=== PATIENT | female | born 1995 | race Caucasian/White ===

== ENCOUNTER 2023-05-20 18:54 | Outpatient (RCR) | payer OTHER, SELFPAY | END 2023-05-20 23:59 | disposition home or self-care (01) | LOC: RPT 18:54 | PROVIDERS: ATTENDING PHYSICIAN Obstetrics & Gynecology; PRIMARYCARE PHYSICIAN Nurse Practitioner | DX: R10.2 Pelvic and perineal pain (principal); N94.10 Unspecified dyspareunia; N39.46 Mixed incontinence; M62.89 Other specified disorders of muscle; Z73.6 Limitation of activities due to disability | CPT/HCPCS: 97110; 97112; 97140; 97530 ==

== ENCOUNTER 2023-06-11 19:13 | Outpatient (RCR) | payer OTHER, SELFPAY | END 2023-06-11 23:59 | disposition home or self-care (01) | LOC: RPT 19:13 | PROVIDERS: ATTENDING PHYSICIAN Obstetrics & Gynecology; PRIMARYCARE PHYSICIAN Nurse Practitioner | DX: R10.2 Pelvic and perineal pain (principal); N94.10 Unspecified dyspareunia; N39.46 Mixed incontinence; M62.89 Other specified disorders of muscle; Z73.6 Limitation of activities due to disability | CPT/HCPCS: 97112; 97140; 97530 ==

== ENCOUNTER → 2023-06-23 17:20 | Outpatient (REF) | payer OTHER, SELFPAY | LOC: PNTC 17:20 | PROVIDERS: ATTENDING PHYSICIAN Obstetrics & Gynecology | DX: O98.519 Other viral diseases complicating pregnancy, unspecified trimester (principal); U07.1 COVID-19 | CPT/HCPCS: 76816 ==

== ENCOUNTER 2023-07-15 08:55 | Outpatient (RCR) | payer OTHER, SELFPAY | END 2023-07-15 23:59 | disposition home or self-care (01) | LOC: RPT 08:55 | PROVIDERS: ATTENDING PHYSICIAN Obstetrics & Gynecology; PRIMARYCARE PHYSICIAN Nurse Practitioner | DX: R10.2 Pelvic and perineal pain (principal); N94.10 Unspecified dyspareunia; N39.46 Mixed incontinence; M62.89 Other specified disorders of muscle; Z73.6 Limitation of activities due to disability | CPT/HCPCS: 97140; 97530 ==

== ENCOUNTER 2023-07-29 07:30 | Inpatient (IN) | payer OTHER, SELFPAY ==
[2023-07-29 07:49] VITALS: BMI 31.1
[2023-07-29 07:51] VITALS: BP 132/87
[2023-07-29 08:09] LABS: Hematocrit 32.7 % (37.0-47.0); Hemoglobin 11.2 g/dL (12.0-16.0); Mean Corp Hgb Conc. 34.3 g/dL (33.0-37.0); Mean Corpuscular Hgb 31.3 pg (27.0-31.0); Mean Corpuscular Volume 91.3 fL (81.0-99.0); Mean Platelet Volume 11.4 fL (7.4-10.4); Platelet Count 206 10^3/uL (130-400); Red Blood Cell Count 3.58 10^6/uL (4.20-5.40); Red Cell Dist. Width 13.3 % (11.5-14.5); White Blood Cell Count 8.1 10^3/uL (4.8-10.8)
[2023-07-29] MEDS: ANCEF 10 IV (12:36)
[2023-07-29] MEDS: BICITRA 30 ML PO (12:36)
[2023-07-29] MEDS: TYLENOL 1000 MG PO (12:36)
[2023-07-29] MEDS: MORPHINE SULFATE 4 MG IV (15:14)
[2023-07-29] MEDS: LR 1000 IV (16:05)
[2023-07-29] MEDS: TORADOL 15 MG IV (19:49)
[2023-07-29] MEDS: BENADRYL 25 MG IV (19:50)
[2023-07-30] MEDS: TORADOL 15 MG IV ×3 (02:02→13:35)
[2023-07-30] MEDS: BENADRYL 25 MG PO (03:08)
[2023-07-30 05:12] LABS: Hematocrit 25.2 % (37.0-47.0); Hemoglobin 8.5 g/dL (12.0-16.0); Mean Corp Hgb Conc. 33.7 g/dL (33.0-37.0); Mean Platelet Volume 11.6 fL (7.4-10.4); Platelet Count 192 10^3/uL (130-400); Red Blood Cell Count 2.74 10^6/uL (4.20-5.40); Red Cell Dist. Width 13.2 % (11.5-14.5); White Blood Cell Count 12.7 10^3/uL (4.8-10.8)
--- NOTE | 2023-07-30 07:18 | W.PN.ANS.POP ---
Anesthesia Post Operative
- Anesthesia Post Op Note
Vital Signs Stable-See Nursing Note: Yes
Airway Patent: Yes
Adequate Pain Control: Yes
Change in Mental Status: No
Current Postoperative Nausea & Vomiting: No
Anesthesia Complications: No
General Anesthetic Recall: No
Unplanned Admission: No
Post Op Hydration Adequate: Yes
[2023-07-30] MEDS: MORPHINE SULFATE 4 MG IV (08:03)
[2023-07-30] MEDS: MOTRIN 600 MG PO (19:30)
[2023-07-30] MEDS: TYLENOL 650 MG PO (21:20)
[2023-07-30] MEDS: ULTRAM 50 MG PO (23:36)
[2023-07-31] MEDS: MOTRIN 600 MG PO ×4 (04:22→23:31)
[2023-07-31] MEDS: TYLENOL 650 MG PO ×4 (04:22→23:30)
[2023-07-31] MEDS: FEOSOL 325 MG PO (08:07)
[2023-07-31] MEDS: SENOKOT-S 1 TABLET PO (08:13)
[2023-08-01] MEDS: MOTRIN 600 MG PO (06:31)
[2023-08-01] MEDS: TYLENOL 650 MG PO (06:33)
[2023-08-01] MEDS: FEOSOL 325 MG PO (08:09)
[2023-08-01] MEDS: SENOKOT-S 1 TABLET PO (08:09)
--- NOTE | 2023-08-01 12:29 | W.DS.TRANS ---
DC Summary - Inspector Assembly
-
Discharge Instructions:
Discharge Diagnosis/Procedures rcs, pph
Instructions:
Stand-Alone Forms:
Changes to Home Medications: No
Discharge Medications:
DC Medications w/original date entered in [facility]
ibuprofen 600 mg tablet 600 mg PO Q6HPRN PRN cramps #90 tabs 08/01/23
Home Medication Changes
Pending Results: No
[2023-08-01 17:18] LABS: Syphilis/T. pallidum Ab Reflex Negative (Negative)
== END 2023-08-01 13:14 | disposition home or self-care (01) | DRG 787 ==
LOC: LDRP 07:30
PROVIDERS: ADMITTING PHYSICIAN Obstetrics & Gynecology
PROC: 10D00Z1 Extraction of Products of Conception, Low, Open Approach (ICD-10-PCS; 2023-07-29)
PROC: 0UQC7ZZ Repair Cervix, Via Natural or Artificial Opening (ICD-10-PCS; 2023-07-29)
DX: O34.211 Maternal care for low transverse scar from previous cesarean delivery (principal); O71.3 Obstetric laceration of cervix; Z37.0 Single live birth; Z3A.39 39 weeks gestation of pregnancy
CPT/HCPCS: 36415; 85027; 86780; 86850; 86900; 86901

== ENCOUNTER → 2023-09-11 14:15 | Outpatient (REF) | payer OTHER, SELFPAY | LOC: RAD 14:15 | PROVIDERS: ATTENDING PHYSICIAN Orthopaedic Surgery; FAMILY PHYSICIAN Nurse Practitioner | DX: M79.671 Pain in right foot (principal) | CPT/HCPCS: 73700 ==

== ENCOUNTER 2023-09-16 15:21 | Outpatient (RCR) | payer OTHER, SELFPAY | END 2023-09-16 23:59 | disposition home or self-care (01) | LOC: RPT 15:21 | PROVIDERS: ATTENDING PHYSICIAN Obstetrics & Gynecology; PRIMARYCARE PHYSICIAN Nurse Practitioner | DX: R10.2 Pelvic and perineal pain (principal); N94.10 Unspecified dyspareunia; N39.46 Mixed incontinence; M62.89 Other specified disorders of muscle; Z73.6 Limitation of activities due to disability; Z98.890 Other specified postprocedural states | CPT/HCPCS: 97140; 97164; 97530 ==

== ENCOUNTER → 2023-09-25 10:26 | Outpatient (REF) | payer OTHER, SELFPAY | LOC: PAVMRI 10:26 | PROVIDERS: ATTENDING PHYSICIAN Nurse Practitioner | DX: Z86.79 Personal history of other diseases of the circulatory system (principal); R42 Dizziness and giddiness; Z15.89 Genetic susceptibility to other disease | CPT/HCPCS: 70553; A9575 ==

== ENCOUNTER 2023-10-08 17:24 | Outpatient (RCR) | payer OTHER, SELFPAY | END 2023-10-08 23:59 | disposition home or self-care (01) | LOC: RPT 17:24 | PROVIDERS: ATTENDING PHYSICIAN Obstetrics & Gynecology; PRIMARYCARE PHYSICIAN Nurse Practitioner | DX: R10.2 Pelvic and perineal pain (principal); N94.10 Unspecified dyspareunia; N39.46 Mixed incontinence; M62.89 Other specified disorders of muscle; Z73.6 Limitation of activities due to disability | CPT/HCPCS: 97014; 97112; 97140; 97530 ==

== ENCOUNTER 2023-11-15 22:50 | Emergency (ER) | payer OTHER, SELFPAY ==
[2023-11-15 22:54] VITALS: BP 151/99
--- NOTE | 2023-11-15 23:10 | ED.GENMED ---
History of Present Illness
General
Chief Complaint: Blood Pressure Problem
Source: patient
Time Seen by Provider: 11/15/23 23:03
Nursing documentation reviewed up to this point in time: agreed with
History of Present Illness
History of Present Illness:
This a pleasant 27-year-old female who is by 4 months. She reports being anemic and hypertensive. 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 Patient
states that for the last few days she is having high blood pressure. She also reports having headache and diarrhea. Patient denies fever but did have cold chills. She has been having intermittent 'spotty vision'.
Patient has had 2 C-sections. Her first child was born 17 months prior
Vital signs are stable. Patient not hypoxic
Nursing note reviewed. I agree with nursing documentation up to this point in time.
Home Meds and allergies reviewed.
NUMBER AND COMPLEXITY OF PROBLEMS ADDRESSED AT THE ENCOUNTER
� Chronic conditions affecting care:
� Acute Exacerbation and/or Progression of Chronic Illness:
� Differential Diagnosis includes:
AMOUNT AND/OR COMPLEXITY OF DATA TO BE REVIEWED AND ANALYZED
I performed an independent evaluation of the following and my interpretation is:
EKG: Normal sinus rhythm rate of 96 with normal intervals, normal axis. No evidence of acute ischemia present. When compared with previous EKG dated March 05, 2023, similar morphology noted.
CT:
X-rays:
Ultrasound:
Laboratory Studies: Potassium is 2.7. Will give oral supplementation. MCV is 83. H&H is within normal limits.
Other:
Review of other/old records: Discharge summary from previous 08/02/2023
Clinical information was obtained by an independent historian:
Prescriptions/Medications Considered but not given:
Further testing considered but not performed:
RISK OF COMPLICATIONS AND/OR MORBIDITY OR MORTALITY OF PATIENT MANAGEMENT
Social determinants of health affecting care: Good Social Support
Discussion with other providers:
Escalation of care including admission/observation vs risk of discharge considered:
CRITICAL CARE NOTE:
Total Time (exclusive of procedures):
Update:
Past History
Past History
ED Past Medical History: Arrthythmia (SVT) and Other (Lyme disease, presumed endometriosis, Migraine, SVT, Stomach ulcers, )
ED Past Surgical History: Cardiac (cardiac ablation), and Tonsilectomy
Social History
Tobacco: Non-smoker
Alcohol: None
Personal:
Living: with family
Employment: Student
Review of Systems
Review of Systems
Allergies reviewed?: Yes
All Other Systems: ROS reviewed and negative except as documented in HPI and ROS
Constitutional: Reports chills
EENT: Reports no symptoms
Respiratory: Reports no symptoms
Cardiac: Reports no symptoms
ABD/GI: Reports diarrhea
: Reports no symptoms
Musculoskeletal: Reports no symptoms
Skin: Reports no symptoms
Neurological: Reports headache
Endocrine: Reports no symptoms
Hematologic/Lymphatic: Reports no symptoms
Psychiatric: Reports anxiety
Phy Exam
General Physical Exam
General Presentation: well appearing and no apparent distress
General Skin: warm and dry
General Habitus: normal
General Mental: alert
General Hydration: appears well hydrated
ENT Exam
ENT Exam: EOMI, pharynx normal, neck supple and normocephalic
Eye Exam
Eye Exam: PERRL, cornea clear and conjunctiva normal
Cardiovascular Exam
Cardiovascular Exam: regular rate/rhythm, no edema, no murmur and normal peripheral pulses
Pulmonary Exam
Pulmonary Exam: lungs clear, no respiratory distress, no rales, no crackles, no rhonchi, no stridor, no wheezing and no cough
Gastrointestinal Exam
Gastrointestinal Exam: normal bowel sounds, non tender, soft, no organomegaly, no pulsatile mass and non distended
Neurological Exam
Neurological Exam: alert, oriented x3, no motor deficits and speech normal
Musculoskeletal Exam
Musculoskeletal Exam: full ROM and no edema
Skin Exam
Skin Exam: warm/dry, no rash, no petechia and pallor
Psychiatric Exam
Psychiatric Exam: normal mood/affect
Course
Orders/Labs/Results
Orders:
Orders
11/15/23 23:17
Complete Blood Count/With Diff Urgent
Comprehensive Metabolic Panel Urgent
Iron Urgent
Lipase Urgent
Comment: ADD ON
Prothrombin Time Urgent
TIBC [Total Iron Binding] Urgent
Uric Acid Urgent
Comment: ADD ON
11/15/23 23:19
Urinalysis Reflex To Culture Urgent
Date Specimen was Collected: 11/15/23
Time Specimen was Collected: 23:18
Urine Microscopic Reflex Cult Urgent
Urine Culture Urgent
PUJA Source: U
Specimen Description:
Date Specimen was Collected: 11/15/23
Time Specimen was Collected: 23:18
11/15/23 23:29
Electrocardiogram (*1) Urgent
Reason for Study: Vertigo / Dizzy
EKG- Treatment ONCE
11/15/23 23:48
Add On- LAB Urgent
Tests Added?: uric acid
0.9% Sodium Chloride 1000 ml [Nss] 1,000 ml IV BOLUS
11/15/23 23:53
Potassium Chloride 10% Elixir [KCl Elixir] 40 meq PO NOW STA
11/16/23 01:20
Add On- LAB Urgent
Tests Added?: lipase
11/16/23 02:33
Basic Metabolic Panel Urgent
11/16/23 03:38
Fosfomycin [Monurol] 3 gm PO ONCE ONE
Abnormal Lab Results
11/15/23 11/15/23 11/16/23
23:17 23:19 02:33
Absolute Monos (auto) 0.7 H 10^3/uL
(0.1-0.6)
Monocytes % 14.0 H %
(1.7-9.3)
Potassium 2.7 L* mmol/L 3.4 L D mmol/L
(3.5-5.1) (3.5-5.1)
Chloride 110 H mmol/L
(98-107)
Creatinine 0.5 L mg/dL
(0.6-1.0)
ALT 51 H U/L
(0-35)
Total Protein 8.4 H g/dl
(6.3-8.2)
Albumin 5.3 H g/dl
(3.5-5.0)
Urine Ketones Trace A
(Negative)
Ur Occult Blood Reflex 3+ A
(Negative)
Leukocyte Esterase Rfl Trace A
(Negative)
Urine Bacteria (Reflex) Moderate A
(Negative)
11/15/23 23:17
11/16/23 02:33
Vital Signs
Initial and Last Documented VS:
Initial Vital Signs
Temp Pulse Resp BP Pulse Ox
98.9 F 79 20 151/99 100
11/15/23 22:54 11/15/23 22:54 11/15/23 22:54 11/15/23 22:54 11/15/23 22:54
Last Documented Vital Signs
Temp Pulse Resp BP Pulse Ox
98.9 F 86 15 107/71 97
11/15/23 22:54 11/16/23 03:30 11/16/23 03:30 11/16/23 03:00 11/16/23 03:30
*Critical Care Note
Total Time (30-74mins, 75-104mins- exclusive of procedures): Not Applicable
Update Note
Update Note:
Spoke with Dr. Pascual did not feel that this is preeclampsia. She states that it typically occurs within the first 6 weeks after delivery. She does recommend follow-up with family doctor for blood pressure. She agrees with the rest of the plan.
ED Attending Note
-
Portions of this chart may have been created with voice recognition software.� Occasional wrong word or��sound alike� substitutions may have occurred due to the inherent limitations of voice recognition software.
Discharge Plan
Departure
Patient Disposition: Home (Routine Discharge)
Date of Disposition: 11/16/23
Time of Disposition: 03:34
Patient with high blood pressure during this ER visit?: No
Condition: Good
Discharge Problem:
Acute hypokalemia, Hypertension, vaginal bleeding
Instructions: Hypokalemia, High Blood Pressure (DC)
Prescriptions:
No Action
Nuretin
1 tab PO DAILY PRN (Reason: headache)
1 tab PO DAILY
iron
1 tab PO BID
Rx Instructions:
unsure of dose
Referrals:
Ceci French CRNP [Family Provider] -
Activity Restrictions/Additional Instructions:
It was a pleasure meeting you and taking part in your care. We hope for your continued healing and wellness.
Please read discharge instructions in their entirety. However, they are for general education and may not describe your exact diagnosis at discharge. Information on your ER visit and medical conditions were discussed with you along with appropriate
follow up information...
If indicated, please take your medications as instructed and indicated on discharge paperwork.
Please schedule a follow up appointment as directed. Call to schedule an appointment
Please return to the emergency department with ANY change in, persisting, or worsening of symptoms. If any of your symptoms do not improve, or persist, or become more severe within 6-12 hours, please return to the emergency department for further
care.
Please return to the emergency department if you develop a headache, neck pain/stiffness, fever greater than 100.4F, chest pain, shortness of breath, persistent nausea, vomiting, slurred speech, difficulty walking, numbness/tingling, weakness, signs
of infection or any other symptoms that are worrisome to you.
If you have any questions or concerns please do not hesitate to call the Hospital at or E-mail me directly at [email or web address]
Interventions
Interventions:
*Risk Screen - Suicide Last Done: 11/15/23 22:54
*General Assessment Last Done: 11/15/23 22:54
*Neglect/Abuse Screening Last Done: 11/15/23 22:54
ED- Fall Risk Assessment Last Done: 11/15/23 22:54
*ED COVID-19 Vaccine History Last Done: 11/15/23 22:54
*Nursing Disposition Last Done: 11/16/23 03:45
QA-Zlkizx-Rgbqwvphoh Assessment Last Done: 11/15/23 23:10
ED- Cardiac Assessment Last Done: 11/15/23 23:10
ED- Neurological Assessment Last Done: 11/15/23 23:10
ED- Pulmonary Assessment Last Done: 11/15/23 23:10
Discharge Date and Time
Discharge Date/Time: 11/16/23 03:46
Print Language: BOLIVIAN
[2023-11-15 23:27] LABS: % Basophils 0.2 % (0-2); % Immature Granulocytes 0.2 % (0-0.5); % Lymphocytes 38.2 % (20.5-51.1); % Neutrophils 46.4 % (42.2-75.2); Absolute Eosinophils 0.1 10^3/uL (0-0.7); Absolute Monocytes 0.7 10^3/uL (0.1-0.6); Absolute Neutrophils 2.4 10^3/uL (1.4-6.5); Hematocrit 37.9 % (37.0-47.0); Hemoglobin 13.6 g/dL (12.0-16.0); Mean Corp Hgb Conc. 35.9 g/dL (33.0-37.0); Mean Corpuscular Volume 83.5 fL (81.0-99.0); Mean Platelet Volume 10.2 fL (7.4-10.4); Nucleated Red Blood Cells % 0 %; Platelet Count 224 10^3/uL (130-400); Red Blood Cell Count 4.54 10^6/uL (4.20-5.40); White Blood Cell Count 5.2 10^3/uL (4.8-10.8)
[2023-11-15 23:28] LABS: Urine Albumin Trace (Neg - Trace); Urine Bilirubin Negative (Negative); Urine Character Slightly Cloudy (Clear); Urine Color Yellow; Urine Glucose Negative (Negative); Urine Ketone Trace (Negative); Urine Leukocyte Trace (Negative); Urine Nitrite Negative (Negative); Urine Occult Blood 3+ (Negative); Urine Specific Gravity 1.025 (<1.030); Urine Urobilinogen Negative (Neg - 1+)
[2023-11-15 23:33] VITALS: BP 115/80
[2023-11-15 23:38] LABS: INR 0.98; PT 12.8 Sec (11.4-14.6)
[2023-11-15 23:49] LABS: Urine Squamous Cell >30 /LPF (Few)
[2023-11-15 23:50] LABS: ALT (SGPT) 51 U/L (0-35); AST (SGOT) 36 U/L (14-36); Albumin 5.3 g/dl (3.5-5.0); Alkaline Phosphatase 86 U/L (38-126); Blood Urea Nitrogen 9 mg/dl (7-17); Calcium 9.7 mg/dl (8.4-10.2); Carbon Dioxide 25 mmol/L (22-30); Chloride 104 mmol/L (98-107); Glucose 98 mg/dl (70-99); Iron 94 ug/dl (37-170); Potassium 2.7 mmol/L (3.5-5.1); Sodium 145 mmol/L (135-145); Total Bilirubin 0.7 mg/dl (0.2-1.3); Total Protein 8.4 g/dl (6.3-8.2); eGFR > 60.00
[2023-11-15 23:50] LABS: Urine Bacteria Moderate (Negative); Urine Red Blood Cell 0-2 /HPF (0-2)
[2023-11-15] MEDS: NSS 1000 IV (23:55)
[2023-11-15] MEDS: KCL ELIXIR 40 MEQ PO (23:59)
[2023-11-16] VITALS: BP 129/99
[2023-11-16 00:05] LABS: Percent Saturation 21 % (20-50); Total Iron Binding Capacity 428 ug/dl (265-497); Uric Acid 6.2 mg/dl (2.5-6.2)
[2023-11-16 01:00] VITALS: BP 113/86
[2023-11-16 01:56] LABS: Lipase 197 U/L (23-300)
[2023-11-16 02:00] VITALS: BP 117/78
[2023-11-16 03:00] VITALS: BP 107/71
[2023-11-16 03:15] LABS: Blood Urea Nitrogen 7 mg/dl (7-17); Calcium 8.5 mg/dl (8.4-10.2); Carbon Dioxide 26 mmol/L (22-30); Chloride 110 mmol/L (98-107); Glucose 89 mg/dl (70-99); Potassium 3.4 mmol/L (3.5-5.1); Sodium 143 mmol/L (135-145); eGFR > 60.00
[2023-11-16] MEDS: MONUROL 3 GM PO (03:42)
== END 2023-11-16 03:46 | disposition home or self-care (01) ==
LOC: EMR 22:50
PROVIDERS: EMERGENCY PHYSICIAN Student in an Organized Health Care Education/Training Program; FAMILY PHYSICIAN Nurse Practitioner
DX: O90.89 Other complications of the puerperium, not elsewhere classified (principal); O16.5 Unspecified maternal hypertension, complicating the puerperium; N93.9 Abnormal uterine and vaginal bleeding, unspecified; E87.6 Hypokalemia; R51.9 Headache, unspecified; R42 Dizziness and giddiness; R19.7 Diarrhea, unspecified; R68.83 Chills (without fever); H53.8 Other visual disturbances; D64.9 Anemia, unspecified; Z88.1 Allergy status to other antibiotic agents; Z88.5 Allergy status to narcotic agent; Z91.048 Other nonmedicinal substance allergy status; Z87.11 Personal history of peptic ulcer disease
CPT/HCPCS: 99284; 80048; 80053; 81003; 81015; 83540; 83550; 83690; 84550; 85025; 85610; 87086; 93005

== ENCOUNTER 2023-11-19 07:39 | Emergency (ER) | payer OTHER, SELFPAY ==
[2023-11-19] VITALS (8 sets, daily range): BP systolic 112–136; BP diastolic 78–84; BMI 26.6
--- NOTE | 2023-11-19 07:54 | ED.GENMED ---
History of Present Illness
General
Chief Complaint: Abdominal Symptoms
Source: patient
Exam Limitations: none
Time Seen by Provider: 11/19/23 07:47
History of Present Illness
History of Present Illness:
27-year-old female 4 months presents with persistent diarrhea. She was seen here several days ago with diarrhea and noted to have potassium. Her potassium was replenished. She was also noted to have high blood pressure. This was felt
not to be related to preeclampsia given the length of time that has passed since she gave . She notes that her abdominal pain is now worsened. The pain is in the mid and right abdomen that radiates to the back. No associated urinary
symptoms. She vomited once this morning. She denies any blood in the diarrhea. She notes multiple episodes of loose watery stool a day
Past History
Past History
ED Past Medical History: Arrthythmia (SVT) and Other (Lyme disease, presumed endometriosis, Migraine, SVT, Stomach ulcers, )
ED Past Surgical History: Cardiac (cardiac ablation), and Tonsilectomy
Social History
Tobacco: Non-smoker
Alcohol: None
Personal:
Living: with family
Employment: Student
Phy Exam
Physical Exam
Physical Exam:
General: Well-appearing female no acute respiratory distress
HEENT: Normocephalic atraumatic
Heart: Regular rate and rhythm no murmurs
Lungs: Clear no wheeze
Abdomen is soft tender to the epigastric and right mid abdomen. No guarding rebound normal bowel sounds nondistended no significant costovertebral angle tenderness
Extremities: No cyanosis
Course
Orders/Labs/Results
Orders:
Orders
11/19/23 07:53
CT Abd/pel W Iv And Oral Contr Urgent
Comment:
Reason For Exam: mid and right abdominal pain, diarrhea
Iohexol [Omnipaque] See Protocol PO NOW STA
Test Result ONCE
11/19/23 07:54
0.9% Sodium Chloride 1000 ml [Nss] 1,000 ml IV BOLUS
11/19/23 08:18
Complete Blood Count/With Diff Urgent
Comprehensive Metabolic Panel Urgent
HCG, Serum Qualitative Screen Urgent
Lipase Urgent
Urinalysis Reflex To Culture Urgent
Date Specimen was Collected: 11/19/23
Time Specimen was Collected: 08:07
Urine Microscopic Reflex Cult Urgent
11/19/23 11:10
STOOL [C difficile Antigen & Toxins] Urgent
PUJA Source: Feces/Stool
Specimen Description:
Stool Culture Urgent
PUJA Source: Feces/Stool
Specimen Description:
Abnormal Lab Results
11/19/23
08:18
RBC 4.11 L 10^6/uL
(4.20-5.40)
Hct 34.9 L %
(37.0-47.0)
MPV 10.8 H fL
(7.4-10.4)
Potassium 3.1 L mmol/L
(3.5-5.1)
BUN 3 L mg/dl
(7-17)
Creatinine 0.5 L mg/dL
(0.6-1.0)
Urine Ketones 1+ A
(Negative)
Urine Bilirubin 1+ A
(Negative)
Urine Urobilinogen 2+ A
(Neg - 1+)
Leukocyte Esterase Rfl Trace A
(Negative)
11/19/23 08:18
11/19/23 08:18
Vital Signs
Initial and Last Documented VS:
Initial Vital Signs
Temp Pulse Resp BP Pulse Ox
98.2 F 92 16 124/78 98
11/19/23 07:41 11/19/23 07:41 11/19/23 07:41 11/19/23 07:41 11/19/23 07:41
Last Documented Vital Signs
Temp Pulse Resp BP Pulse Ox
98.2 F 92 16 115/79 99
11/19/23 07:41 11/19/23 07:41 11/19/23 07:41 11/19/23 13:00 11/19/23 14:15
MDM/Problems Addressed
Differential Diagnosis Includes:
Fatigue, diarrhea, recent low potassium. She notes now increased abdominal pain. Consider viral illness versus colitis will recheck again for hypokalemia. Fluids ordered labs pending. CT with IV and oral contrast pending secondary to tenderness.
*Critical Care Note
Total Time (30-74mins, 75-104mins- exclusive of procedures): Not Applicable
Update Note
Update Note:
Patient reevaluated nontoxic CT scan reviewed and negative. Potassium improved from last visit. No obvious appendicitis or enteritis on CT scan. Patient unable to provide stool sample here. Stable for discharge.
ED Attending Note
-
Portions of this chart may have been created with voice recognition software.� Occasional wrong word or��sound alike� substitutions may have occurred due to the inherent limitations of voice recognition software.
Discharge Plan
Departure
Patient Disposition: Home (Routine Discharge)
Date of Disposition: 11/19/23
Time of Disposition: 14:37
Patient with high blood pressure during this ER visit?: No
Discharge Problem:
Abdominal pain
Instructions: Abdominal Pain
Prescriptions:
No Action
Nuretin
1 tab PO DAILY PRN (Reason: headache)
1 tab PO DAILY
iron
1 tab PO BID
Rx Instructions:
unsure of dose
Referrals:
Ceci French CRNP [Family Provider] -
Activity Restrictions/Additional Instructions:
Please return here for worsening symptoms otherwise follow-up with your family doctor. Consider Imodium if needed for diarrhea.
Interventions
Interventions:
*Risk Screen - Suicide Last Done: 11/19/23 08:24
*General Assessment Last Done: 11/19/23 08:24
*Neglect/Abuse Screening Last Done: 11/19/23 08:24
ED- Fall Risk Assessment Last Done: 11/19/23 08:52
*ED COVID-19 Vaccine History Last Done: 11/19/23 07:41
CW-Wiguoo-Tjirgsloto Assessment Last Done: 11/19/23 08:50
Discharge Date and Time
Print Language: ALGERIAN
[2023-11-19] MEDS: OMNIPAQUE 50 ML PO (08:15)
[2023-11-19] MEDS: NSS 1000 IV (08:16)
[2023-11-19 08:31] LABS: % Basophils 0.2 % (0-2); % Eosinophils 0.4 % (0-6); % Immature Granulocytes 0.2 % (0-0.5); % Lymphocytes 22.4 % (20.5-51.1); % Monocytes 8.2 % (1.7-9.3); % Neutrophils 68.6 % (42.2-75.2); Absolute Lymphocytes 1.2 10^3/uL (1.2-3.4); Absolute Monocytes 0.4 10^3/uL (0.1-0.6); Absolute Neutrophils 3.5 10^3/uL (1.4-6.5); Hematocrit 34.9 % (37.0-47.0); Hemoglobin 12.6 g/dL (12.0-16.0); Mean Corp Hgb Conc. 36.1 g/dL (33.0-37.0); Mean Corpuscular Hgb 30.7 pg (27.0-31.0); Mean Corpuscular Volume 84.9 fL (81.0-99.0); Mean Platelet Volume 10.8 fL (7.4-10.4); Nucleated Red Blood Cells % 0 %; Platelet Count 240 10^3/uL (130-400); Red Blood Cell Count 4.11 10^6/uL (4.20-5.40); Urine Albumin Trace (Neg - Trace); Urine Bilirubin 1+ (Negative); Urine Character Very Cloudy (Clear); Urine Color Yellow; Urine Glucose Negative (Negative); Urine Ketone 1+ (Negative); Urine Leukocyte Trace (Negative); Urine Nitrite Negative (Negative); Urine Occult Blood Negative (Negative); Urine Specific Gravity 1.025 (<1.030); Urine Urobilinogen 2+ (Neg - 1+); White Blood Cell Count 5.1 10^3/uL (4.8-10.8)
[2023-11-19 08:43] LABS: HCG, Serum Qualitative Screen Negative
[2023-11-19 08:44] LABS: ALT (SGPT) 28 U/L (0-35); AST (SGOT) 22 U/L (14-36); Albumin 4.4 g/dl (3.5-5.0); Alkaline Phosphatase 68 U/L (38-126); Blood Urea Nitrogen 3 mg/dl (7-17); Calcium 8.7 mg/dl (8.4-10.2); Carbon Dioxide 30 mmol/L (22-30); Chloride 104 mmol/L (98-107); Estimated Creatinine Clearance > 125 ml/min; Glucose 89 mg/dl (70-99); Potassium 3.1 mmol/L (3.5-5.1); Sodium 142 mmol/L (135-145); Total Bilirubin 0.5 mg/dl (0.2-1.3); Total Protein 6.9 g/dl (6.3-8.2); eGFR > 60.00
[2023-11-19 08:56] LABS: Urine Amorphous Seen; Urine Squamous Cell >30 /LPF (Few)
[2023-11-19 09:01] LABS: Urine Red Blood Cell None Seen /HPF (0-2)
[2023-11-19 10:05] LABS: Lipase 138 U/L (23-300)
== END 2023-11-19 15:08 | disposition home or self-care (01) ==
LOC: EMR 07:39
PROVIDERS: Physician Assistant; EMERGENCY PHYSICIAN Emergency Medicine; FAMILY PHYSICIAN Nurse Practitioner
DX: R10.9 Unspecified abdominal pain (principal)
CPT/HCPCS: 99285; 96360; 74177; 80053; 81003; 81015; 83690; 84703; 85025; Q9967

== ENCOUNTER 2023-11-21 10:21 | Outpatient (RCR) | payer OTHER, SELFPAY | END 2023-11-21 23:59 | disposition home or self-care (01) | LOC: RPT 10:21 | PROVIDERS: ATTENDING PHYSICIAN Obstetrics & Gynecology; PRIMARYCARE PHYSICIAN Nurse Practitioner | DX: R10.2 Pelvic and perineal pain (principal); N94.10 Unspecified dyspareunia; N39.46 Mixed incontinence; M62.89 Other specified disorders of muscle; Z73.6 Limitation of activities due to disability | CPT/HCPCS: 97014; 97110; 97112; 97140; 97530 ==

== ENCOUNTER → 2023-11-26 07:46 | Outpatient (REF) | payer OTHER, SELFPAY | LOC: RAD 07:46 | PROVIDERS: ATTENDING PHYSICIAN Obstetrics & Gynecology; FAMILY PHYSICIAN Nurse Practitioner | DX: N93.9 Abnormal uterine and vaginal bleeding, unspecified (principal) | CPT/HCPCS: 76830; 76856 ==

== ENCOUNTER 2023-12-17 17:43 | Outpatient (RCR) | payer OTHER, SELFPAY | END 2023-12-17 23:59 | disposition home or self-care (01) | LOC: RPT 17:43 | PROVIDERS: ATTENDING PHYSICIAN Obstetrics & Gynecology; PRIMARYCARE PHYSICIAN Nurse Practitioner | DX: R10.2 Pelvic and perineal pain (principal); N94.10 Unspecified dyspareunia; N39.46 Mixed incontinence; M62.89 Other specified disorders of muscle | CPT/HCPCS: 97110; 97140; 97530 ==

== ENCOUNTER 2024-01-22 17:51 | Outpatient (RCR) | payer OTHER, SELFPAY | END 2024-01-22 23:59 | disposition home or self-care (01) | LOC: RPT 17:51 | PROVIDERS: ATTENDING PHYSICIAN Obstetrics & Gynecology; PRIMARYCARE PHYSICIAN Nurse Practitioner | DX: R10.2 Pelvic and perineal pain (principal); N94.10 Unspecified dyspareunia; N39.46 Mixed incontinence; M62.89 Other specified disorders of muscle; Z73.6 Limitation of activities due to disability | CPT/HCPCS: 97140; 97530 ==

== ENCOUNTER 2024-02-05 17:52 | Outpatient (RCR) | payer OTHER, SELFPAY | END 2024-02-05 23:59 | disposition home or self-care (01) | LOC: RPT 17:52 | PROVIDERS: ATTENDING PHYSICIAN Obstetrics & Gynecology; PRIMARYCARE PHYSICIAN Nurse Practitioner | DX: R10.2 Pelvic and perineal pain (principal); N94.10 Unspecified dyspareunia; N39.46 Mixed incontinence; M62.89 Other specified disorders of muscle; Z73.6 Limitation of activities due to disability | CPT/HCPCS: 97140; 97530 ==

== ENCOUNTER 2024-03-03 18:06 | Outpatient (RCR) | payer OTHER, SELFPAY | END 2024-03-04 14:56 | disposition home or self-care (01) | LOC: RPT 18:06 | PROVIDERS: ATTENDING PHYSICIAN Obstetrics & Gynecology; PRIMARYCARE PHYSICIAN Nurse Practitioner | DX: R10.2 Pelvic and perineal pain (principal); N94.10 Unspecified dyspareunia; N39.46 Mixed incontinence; M62.89 Other specified disorders of muscle; Z73.6 Limitation of activities due to disability | CPT/HCPCS: 97110; 97140; 97530 ==

== ENCOUNTER 2024-03-31 17:10 | Outpatient (RCR) | payer OTHER, SELFPAY | END 2024-03-31 23:59 | disposition home or self-care (01) | LOC: RPT 17:10 | PROVIDERS: ATTENDING PHYSICIAN Obstetrics & Gynecology; FAMILY PHYSICIAN Nurse Practitioner | DX: M62.89 Other specified disorders of muscle (principal); N39.3 Stress incontinence (female) (male); R10.2 Pelvic and perineal pain; N94.10 Unspecified dyspareunia; Z73.6 Limitation of activities due to disability | CPT/HCPCS: 97163; 97530 ==

== ENCOUNTER 2024-04-11 10:09 | Emergency (ER) | payer OTHER, SELFPAY ==
[2024-04-11 10:18] VITALS: BP 122/89
[2024-04-11 10:49] VITALS: BMI 25.1
--- NOTE | 2024-04-11 10:51 | EDRN ---
Pt had charo, margharita, beer, then back to liquor but has not been drinking at d/t 8 month old baby and a 2 year old. Pt started last night w/ N/V and diarrhea. Pt also has a migraine w/ + history. Head pain is 6-7/10. no abd pain. Pt had 4 stools
watery and loose. Pt has had no urinarly symptoms. Pt has been vomiting bile now.
[2024-04-11 10:56] VITALS: BP 120/85
--- NOTE | 2024-04-11 11:04 | EDRN ---
Payton GRAHAM in room w/ pt.
--- NOTE | 2024-04-11 11:10 | ED.GENMED ---
History of Present Illness
General
Chief Complaint: Abdominal Symptoms
Source: patient
Exam Limitations: none
Time Seen by Provider: 04/11/24 10:42
Nursing documentation reviewed up to this point in time: agreed with
History of Present Illness
History of Present Illness:
28-year-old female presenting to the emergency department today with concerns of migraine. Has a long history of migraines has 1 today has been vomiting unable to tolerate by mouth this prompted her come to the ER. Denies any chest pain shortness
of breath numbness weakness. No neck pain.
Past History
Past History
ED Past Medical History: Arrthythmia (SVT) and Other (Lyme disease, presumed endometriosis, Migraine, SVT, Stomach ulcers, )
ED Past Surgical History: Cardiac (cardiac ablation), and Tonsilectomy
Social History
Tobacco: Non-smoker
Alcohol: None
Personal:
Living: with family
Employment: Student
Review of Systems
Review of Systems
Allergies reviewed?: Yes
All Other Systems: ROS reviewed and negative except as documented in HPI and ROS
Phy Exam
Physical Exam
Physical Exam:
GENERAL: Alert , in no apparent distress
EYE: pupils equal and reactive
NECK: Supple, no significant adenopathy.
ENT: o/p clr, mmm.
CARDIAC: Regular rate and rhythm .
LUNGS: Clear breath sounds bilaterally, no acute respiratory distress, no wheezes/rales/rhonchi
ABDOMEN: Soft, without focal tenderness, no r/g, no cvat
NEUROLOGICAL: Alert and oriented, no focal neuro deficits
SKIN: Warm and dry, skin intact.
MUSCULOSKELETAL: No edema, well perfused.
PSYCH: Normal and appropriate interaction.
Course
Orders/Labs/Results
Orders:
Orders
04/11/24 11:07
0.9% Sodium Chloride 1000 ml [Nss] 1,000 ml IV BOLUS
Diphenhydramine [Benadryl] 25 mg IV NOW STA
Ketorolac [Toradol] 15 mg IV NOW STA
Metoclopramide [Reglan] 10 mg IV NOW STA
04/11/24 11:09
Diphenhydramine [Benadryl] 50 mg .ROUTE .STK-MED ONE
Ketorolac [Toradol] 15 mg .ROUTE .STK-MED ONE
Metoclopramide [Reglan] 10 mg .ROUTE .STK-MED ONE
Vital Signs
Initial and Last Documented VS:
Initial Vital Signs
Temp Pulse Resp BP Pulse Ox
97.7 F 88 16 122/89 99
04/11/24 10:18 04/11/24 10:18 04/11/24 10:18 04/11/24 10:18 04/11/24 10:18
Last Documented Vital Signs
Temp Pulse Resp BP Pulse Ox
97.7 F 92 16 99/67 99
04/11/24 10:18 04/11/24 12:44 04/11/24 12:44 04/11/24 12:44 04/11/24 12:44
MDM/Problems Addressed
MDM/Problems Addressed:
28-year-old female presenting to the emergency department today with concerns of migraine. Here patient generally well-appearing no distress normal neurologic evaluation. Given a migraine cocktail. Patient asymptomatic after treatment. Stable
for discharge. Return precautions given.
*Critical Care Note
Total Time (30-74mins, 75-104mins- exclusive of procedures): Not Applicable
ED Attending Note
-
Portions of this chart may have been created with voice recognition software.� Occasional wrong word or��sound alike� substitutions may have occurred due to the inherent limitations of voice recognition software.
Discharge Plan
Departure
Patient Disposition: Home (Routine Discharge)
Date of Disposition: 04/11/24
Time of Disposition: 13:07
Patient with high blood pressure during this ER visit?: No
Condition: Good
Covid-19: Not Applicable
Discharge Problem:
Migraine
Instructions: Migraine in adults
Prescriptions:
No Action
Nuretin
1 tab PO DAILY PRN (Reason: headache)
1 tab PO DAILY
iron
1 tab PO BID
Rx Instructions:
unsure of dose
Referrals:
Ceci French CRNP [Family Provider] -
Activity Restrictions/Additional Instructions:
You came to the emergency department today with concerns of migraine. You were given medications with improved symptoms. Return to the emergency department for any worsening, new or concerning symptoms.
Interventions
Interventions:
*Risk Screen - Suicide Last Done: 04/11/24 10:18
*General Assessment Last Done: 04/11/24 10:49
*Neglect/Abuse Screening Last Done: 04/11/24 10:18
ED- Fall Risk Assessment Last Done: 04/11/24 10:51
*ED COVID-19 Vaccine History Last Done: 04/11/24 10:18
LD-Tiuccn-Ywjbgvrbvm Assessment Last Done: 04/11/24 10:58
Discharge Date and Time
Print Language: SLOVAK
[2024-04-11] MEDS: TORADOL 15 MG IV (11:23)
[2024-04-11] MEDS: BENADRYL 25 MG IV (11:24)
[2024-04-11] MEDS: REGLAN 10 MG IV (11:24)
[2024-04-11] MEDS: NSS 1000 IV (11:25)
--- NOTE | 2024-04-11 12:39 | EDRN ---
Pt denies any nausea, has not vomited nor had any diarrhea w/ pain now 06/04. IVF are completed. Pt states is ready for discharge. This RN TT'jacqueline GRAHAM.
[2024-04-11 12:44] VITALS: BP 99/67
--- NOTE | 2024-04-11 13:01 | EDRN ---
Payton Rolon PA in to see pt.
== END 2024-04-11 13:15 | disposition home or self-care (01) ==
LOC: EMR 10:09
PROVIDERS: EMERGENCY PHYSICIAN Student in an Organized Health Care Education/Training Program; FAMILY PHYSICIAN Nurse Practitioner
DX: G43.909 Migraine, unspecified, not intractable, without status migrainosus (principal)
CPT/HCPCS: 96374; 96375; 96361; 99284

== ENCOUNTER 2024-05-06 18:30 | Outpatient (RCR) | payer OTHER, SELFPAY | END 2024-05-06 23:59 | disposition home or self-care (01) | LOC: RPT 18:30 | PROVIDERS: ATTENDING PHYSICIAN Obstetrics & Gynecology; FAMILY PHYSICIAN Nurse Practitioner | DX: M62.89 Other specified disorders of muscle (principal); N39.3 Stress incontinence (female) (male); R10.2 Pelvic and perineal pain; N94.10 Unspecified dyspareunia; Z73.6 Limitation of activities due to disability | CPT/HCPCS: 97110; 97112; 97140; 97530 ==

== ENCOUNTER 2024-09-24 19:16 | Emergency (ER) | payer OTHER, SELFPAY ==
[2024-09-24 19:17] VITALS: BP 143/97
[2024-09-24 19:34] LABS: % Basophils 0.4 % (0-2); % Eosinophils 1.3 % (0-6); % Immature Granulocytes 0.3 % (0-0.5); % Lymphocytes 36.9 % (20.5-51.1); % Monocytes 8.5 % (1.7-9.3); % Neutrophils 52.6 % (42.2-75.2); Absolute Eosinophils 0.1 10^3/uL (0-0.7); Absolute Lymphocytes 2.8 10^3/uL (1.2-3.4); Absolute Monocytes 0.6 10^3/uL (0.1-0.6); Hemoglobin 13.7 g/dL (12.0-16.0); Mean Corp Hgb Conc. 34.3 g/dL (33.0-37.0); Mean Corpuscular Hgb 30.6 pg (27.0-31.0); Mean Corpuscular Volume 89.3 fL (81.0-99.0); Nucleated Red Blood Cells % 0 %; Platelet Count 284 10^3/uL (130-400); Red Blood Cell Count 4.48 10^6/uL (4.20-5.40); Red Cell Dist. Width 11.6 % (11.5-14.5); White Blood Cell Count 7.6 10^3/uL (4.8-10.8)
[2024-09-24 19:36] LABS: Urine Albumin 1+ (Neg - Trace); Urine Bilirubin Negative (Negative); Urine Character Clear (Clear); Urine Color Yellow; Urine Glucose Negative (Negative); Urine Ketone 1+ (Negative); Urine Leukocyte Negative (Negative); Urine Nitrite Negative (Negative); Urine Occult Blood 1+ (Negative); Urine Specific Gravity 1.025 (<1.030); Urine Urobilinogen Negative (Neg - 1+)
[2024-09-24 19:44] LABS: Urine Mucus Many; Urine Squamous Cell 0-2 /LPF (Few)
[2024-09-24 19:45] LABS: Urine Bacteria Few (Negative); Urine Red Blood Cell 0-2 /HPF (0-2); Urine White Cell 0-2 /HPF (0-5)
[2024-09-24 19:49] LABS: ALT (SGPT) 11 U/L (0-35); AST (SGOT) 16 U/L (14-36); Albumin 4.7 g/dl (3.5-5.0); Alkaline Phosphatase 52 U/L (38-126); Blood Urea Nitrogen 7 mg/dl (7-17); Calcium 9.5 mg/dl (8.4-10.2); Carbon Dioxide 31 mmol/L (22-30); Chloride 104 mmol/L (98-107); Glucose 107 mg/dl (70-99); Lipase 241 U/L (23-300); Potassium 4.2 mmol/L (3.5-5.1); Sodium 145 mmol/L (135-145); Total Bilirubin 0.4 mg/dl (0.2-1.3); Total Protein 7.9 g/dl (6.3-8.2); eGFR > 60.00
[2024-09-24 20:09] LABS: HCG, Serum Qualitative Screen Negative
--- NOTE | 2024-09-24 22:56 | ED.GENMED ---
History of Present Illness
General
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
Source: patient
Exam Limitations: none
Time Seen by Provider: 09/24/24 22:49
History of Present Illness
History of Present Illness:
28-year-old female presents with ongoing left pelvic pain. She has a history of pelvic congestion syndrome. She was referred by her family doctor to [facility]. She had stents placed in [facility] for her pelvic
congestion syndrome. This was done about 6 months ago and her pain has not changed. The pain got worse today and she presents here. She has tried heat ice Motrin and Tylenol without relief. She denies any urinary symptoms or change in bowel
habits but she does note pain with intercourse. She denies any vaginal bleeding. No fevers. No other complaints at this time
Past History
Past History
ED Past Medical History: Arrthythmia (SVT) and Other (Lyme disease, presumed endometriosis, Migraine, SVT, Stomach ulcers, )
ED Past Surgical History: Cardiac (cardiac ablation), and Tonsilectomy
Social History
Tobacco: Non-smoker
Alcohol: None
Personal:
Living: with family
Employment: Student
Phy Exam
Physical Exam
Physical Exam:
General: Well-appearing female no acute respiratory distress
HEENT: Normocephalic atraumatic
Heart: Regular rate and rhythm
Lungs: Clear no wheeze
Abdomen is soft nontender nondistended tenderness noted over the prior scar
Extremities: No cyanosis
Course
Orders/Labs/Results
Orders:
Orders
09/24/24 19:20
Test Result ONCE
09/24/24 19:25
Complete Blood Count/With Diff Urgent
Comprehensive Metabolic Panel Urgent
HCG, Serum Qualitative Screen Urgent
Comment: Notify provider if positive test present
Lipase Urgent
Urinalysis Reflex To Culture Urgent
Date Specimen was Collected: 09/24/24
Time Specimen was Collected: 19:19
Urine Microscopic Reflex Cult Urgent
09/24/24 22:56
US Pelvis W Transvag Combined Urgent
Comment:
Reason For Exam: left pelvic pain
Abnormal Lab Results
09/24/24
19:25
Carbon Dioxide 31 H mmol/L
(22-30)
Glucose 107 H mg/dl
(70-99)
Urine Ketones 1+ A
(Negative)
Ur Occult Blood Reflex 1+ A
(Negative)
Urine Bacteria (Reflex) Few A
(Negative)
Urine Albumin (Reflex) 1+ A
(Neg - Trace)
09/24/24 19:25
09/24/24 19:25
Vital Signs
Initial and Last Documented VS:
Initial Vital Signs
Temp Pulse Resp BP Pulse Ox
98.6 F 93 16 143/97 100
09/24/24 19:17 09/24/24 19:17 09/24/24 19:17 09/24/24 19:17 09/24/24 19:17
Last Documented Vital Signs
Temp Pulse Resp BP Pulse Ox
98.6 F 97 18 117/83 98
09/24/24 19:17 09/25/24 00:30 09/25/24 00:30 09/25/24 00:30 09/25/24 00:30
MDM/Problems Addressed
Differential Diagnosis Includes:
Pelvic pain. Consider scar tissue versus ovarian cyst versus torsion
Will check labs. Pelvic ultrasound pending
*Critical Care Note
Total Time (30-74mins, 75-104mins- exclusive of procedures): Not Applicable
Update Note
Update Note:
Ultrasound pelvis demonstrates 2 cm left sided ovarian cyst no evidence of torsion. Explained to her that this could be a source of pain but unlikely to be a source of chronic pelvic pain. Recommended Motrin and Tylenol. Recommended follow-up
with SPEECH LANGUAGE THERAPIST. No indication for any further intervention from the emergency room standpoint.
ED Attending Note
-
Portions of this chart may have been created with voice recognition software.� Occasional wrong word or��sound alike� substitutions may have occurred due to the inherent limitations of voice recognition software.
Discharge Plan
Departure
Patient Disposition: Home (Routine Discharge)
Date of Disposition: 09/25/24
Time of Disposition: 01:07
Patient with high blood pressure during this ER visit?: No
Discharge Problem:
Ovarian cyst
Instructions: Ovarian cysts
Prescriptions:
No Action
Nuretin
1 tab PO DAILY PRN (Reason: headache)
1 tab PO DAILY
iron
1 tab PO BID
Rx Instructions:
unsure of dose
Referrals:
Ceci French CRNP [Family Provider] -
Activity Restrictions/Additional Instructions:
Continue with ibuprofen or Tylenol for pain. Return here for worsening symptoms otherwise follow-up with your office machine installer
Interventions
Interventions:
*Risk Screen - Suicide Last Done: 09/24/24 19:17
*Neglect/Abuse Screening Last Done: 09/24/24 19:17
ED-Female Genitourinary Assessment Last Done: 09/24/24 22:15
Discharge Date and Time
Print Language: ROMANIAN
[2024-09-25 00:30] VITALS: BP 117/83
== END 2024-09-25 01:14 | disposition home or self-care (01) ==
LOC: EMR 19:16
PROVIDERS: Student in an Organized Health Care Education/Training Program; EMERGENCY PHYSICIAN Emergency Medicine; FAMILY PHYSICIAN Nurse Practitioner
DX: N83.202 Unspecified ovarian cyst, left side (principal)
CPT/HCPCS: 99284; 76830; 76856; 80053; 81003; 81015; 83690; 84703; 85025

== ENCOUNTER 2024-11-17 10:14 | Emergency (ER) | payer OTHER, SELFPAY ==
[2024-11-17 10:17] VITALS: BP 126/91
[2024-11-17 11:00] LABS: % Basophils 0.1 % (0-2); % Eosinophils 0.1 % (0-6); % Immature Granulocytes 0.3 % (0-0.5); % Monocytes 4.3 % (1.7-9.3); % Neutrophils 83.2 % (42.2-75.2); Absolute Lymphocytes 1.1 10^3/uL (1.2-3.4); Absolute Monocytes 0.4 10^3/uL (0.1-0.6); Absolute Neutrophils 7.6 10^3/uL (1.4-6.5); HCG, Serum Qualitative Screen Negative; Hematocrit 41.5 % (37.0-47.0); Hemoglobin 14.2 g/dL (12.0-16.0); Mean Corp Hgb Conc. 34.2 g/dL (33.0-37.0); Mean Corpuscular Hgb 30.4 pg (27.0-31.0); Mean Corpuscular Volume 88.9 fL (81.0-99.0); Mean Platelet Volume 10.1 fL (7.4-10.4); Nucleated Red Blood Cells % 0 %; Platelet Count 259 10^3/uL (130-400); Red Blood Cell Count 4.67 10^6/uL (4.20-5.40); White Blood Cell Count 9.1 10^3/uL (4.8-10.8)
[2024-11-17 11:04] LABS: Lactic Acid 3.1 mmol/L (0.7-2.0)
[2024-11-17 11:05] LABS: ALT (SGPT) 13 U/L (0-35); AST (SGOT) 17 U/L (14-36); Albumin 5.3 g/dl (3.5-5.0); Alkaline Phosphatase 53 U/L (38-126); Blood Urea Nitrogen 8 mg/dl (7-17); Calcium 9.9 mg/dl (8.4-10.2); Carbon Dioxide 25 mmol/L (22-30); Chloride 108 mmol/L (98-107); Glucose 110 mg/dl (70-99); Potassium 4.5 mmol/L (3.5-5.1); Sodium 146 mmol/L (135-145); Total Bilirubin 0.5 mg/dl (0.2-1.3); Total Protein 9.1 g/dl (6.3-8.2); eGFR > 60.00
--- NOTE | 2024-11-17 11:34 | ED.GENMED ---
History of Present Illness
General
Chief Complaint: Urinary Symptoms
Source: patient
Time Seen by Provider: 11/17/24 11:17
History of Present Illness
History of Present Illness:
28-year-old female with past medical history of chronic migraines, has been dealing with chronic pelvic pain since she had 2 separate sections over the last 2 years, chronic Lyme currently being worked up by rheumatology for her chronic
pain presenting to the emergency department for evaluation of multiple symptoms including exacerbation of her usual chronic migraine that was not responsive to Nurtec this morning also accompanied with nausea and vomiting with left-sided flank pain
and lower abdominal discomfort. Patient saw her professor of religion 2 weeks ago where she had beginning stages of her workup performed with labs as well as had a urinalysis completed which ended up growing 100,000 CFU of Klebsiella oxytocin on urine
culture but patient states no one ever called her to discuss these results nor start her on antibiotics. Patient does states she is not having any explicit urinary symptoms including urinary frequency/urgency/dysuria or hematuria and notes that she
has had urinary tract infections in the past and does not have symptoms typical of this. She denies any known fevers, chills, rigors, chest pain or shortness of breath or other URI-like symptoms or any other concerns presently.
Past History
Past History
ED Past Medical History: Arrthythmia (SVT) and Other (Lyme disease, presumed endometriosis, Migraine, SVT, Stomach ulcers, )
ED Past Surgical History: Cardiac (cardiac ablation), and Tonsilectomy
Social History
Tobacco: Non-smoker
Alcohol: None
Drug: None
Personal:
Living: with family
Employment: Employed
Review of Systems
Review of Systems
All Other Systems: ROS reviewed and negative except as documented in HPI and ROS
Phy Exam
Physical Exam
Physical Exam:
GENERAL: Alert , in no apparent distress
EYE: clear conjunctiva b/l
HEAD: NCAT
ENT: o/p clr, mmm.
CARDIAC: Regular rate and rhythm .
LUNGS: Clear breath sounds bilaterally, no acute respiratory distress, no wheezes/rales/rhonchi
ABDOMEN: Soft, tenderness suprapubically, no r/g, mild left CVAT
NEUROLOGICAL: Alert and oriented
SKIN: Warm and dry, skin intact.
MUSCULOSKELETAL: No edema, well perfused.
PSYCH: Normal and appropriate interaction.
Scores
Heart Failure Risk
Heart Failure Risk Score: Not Applicable
Heart Score for Chest Pain Patients
STEMI patient?: Not applicable
Withdrawal Assessment of Alcohol
Withdrawal Assessment Completed?: Not applicable
Sepsis
Sepsis Screening
Sepsis Assessment: Sepsis
Sepsis Screen
Sepsis Screen: Sepsis
Date: 11/17/24
Time: 16:05
Course
Orders/Labs/Results
Orders:
Orders
11/17/24 10:21
Test Result ONCE
11/17/24 10:43
Complete Blood Count/With Diff Urgent
Comprehensive Metabolic Panel Urgent
HCG, Serum Qualitative Screen Urgent
Lactate Level [Lactic Acid] Urgent
Blood Culture Urgent
PUJA Source: Blood/Venous
Specimen Description:
11/17/24 11:31
0.9% Sodium Chloride 1000 ml [Nss] 1,900 ml IV NOW STA
Cefepime HCl [Maxipime] 2,000 mg IV NOW STA
Diphenhydramine [Benadryl] 25 mg IV NOW STA
Ketorolac [Toradol] 30 mg IV NOW STA
Metoclopramide [Reglan] 10 mg IV NOW STA
11/17/24 11:33
CT Abd/pel Without Iv Or Oral Urgent
Comment:
Reason For Exam: UTI, flank pain, vomiting
11/17/24 11:37
Blood Culture Urgent
UPJA Source: Blood/Venous
Specimen Description:
11/17/24 11:42
Urinalysis Reflex To Culture Urgent
Date Specimen was Collected: 11/17/24
Time Specimen was Collected: 11:40
Urine Microscopic Reflex Cult Urgent
11/17/24 11:56
Diphenhydramine [Benadryl] 50 mg .ROUTE .STK-MED ONE
11/17/24 11:59
Diphenhydramine [Benadryl] 25 mg IV NOW STA
11/17/24 12:03
Hydrocortisone Sod Succinate [Solu-Cortef] 100 mg IV NOW STA
11/17/24 15:08
Lactic Acid Urgent
Abnormal Lab Results
11/17/24 11/17/24
10:43 11:42
Absolute Neuts (auto) 7.6 H 10^3/uL
(1.4-6.5)
Absolute Lymphs (auto) 1.1 L 10^3/uL
(1.2-3.4)
Neutrophils % 83.2 H %
(42.2-75.2)
Lymphocytes % 12.0 L %
(20.5-51.1)
Sodium 146 H mmol/L
(135-145)
Chloride 108 H mmol/L
(98-107)
Creatinine 0.5 L mg/dL
(0.6-1.0)
Glucose 110 H mg/dl
(70-99)
Lactic Acid 3.1 H mmol/L
(0.7-2.0)
Total Protein 9.1 H g/dl
(6.3-8.2)
Albumin 5.3 H g/dl
(3.5-5.0)
Ur Occult Blood Reflex 1+ A
(Negative)
Urine Bacteria (Reflex) Few A
(Negative)
Urine Albumin (Reflex) 2+ A
(Neg - Trace)
11/17/24 10:43
11/17/24 10:43
Vital Signs
Initial and Last Documented VS:
Initial Vital Signs
Temp Pulse Resp BP Pulse Ox
98.2 F 104 16 126/91 97
11/17/24 10:17 11/17/24 10:17 11/17/24 10:17 11/17/24 10:17 11/17/24 10:17
Last Documented Vital Signs
Temp Pulse Resp BP Pulse Ox
98.2 F 101 18 104/71 96
11/17/24 10:17 11/17/24 15:57 11/17/24 15:57 11/17/24 15:57 11/17/24 15:57
MDM/Problems Addressed
Differential Diagnosis Includes:
- Urinary tract infection/cystitis
- Pyelonephritis
- Renal/ureteral colic, kidney stone, infected kidney stone
-
- Ovarian cyst
- Migraine headache
- Tension headache
- Bacteremia/urosepsis
- Exacerbation of patient's chronic conditions
MDM/Problems Addressed:
28-year-old female presenting the ER for evaluation of headache accompanied with nausea vomiting and exacerbation of her typical abdominal pain. Had workup completed as an outpatient with rheumatology where she was found to have Klebsiella oxytocin
on urine culture but has not been treated with any antibiotics. Patient is afebrile here and otherwise hemodynamically stable. Mild tachycardia from triage noted however at time of my exam she was in a normal sinus rhythm that is rate controlled.
Labs including lactic acid from triage had been ordered which shows no leukocytosis, increased neutrophil count and a lactic acid of greater than 3. I reviewed patient's urine culture which was pretty much pansensitive, will start her on IV
Maxipime, fluids and migraine cocktail. Patient last here in September where she had a pelvic ultrasound showing a left-sided ovarian cyst. Given the urinary tract infection combined with her presenting symptoms will obtain CT scan to ensure no infected
kidney stone. Disposition pending
Chronic conditions affecting care: Neurological disorder (Migraine) and Other (Chronic pain)
*Radiology
Radiology exam reviewed: radiology read reviewed
*Pulse Oximetry
SaO2: 97
Oxygen Mode of Delivery: Room air
Patient hypoxic: no
*Critical Care Note
Total Time (30-74mins, 75-104mins- exclusive of procedures): Not Applicable
Data Reviewed
Review of Other/Old Records Reveals: Labs, Records and Radiology Studies
Comment
Comment:
Following medications given patient started complaining of some itchiness and had some noted hives around her eyes as well as a skin crawling sensation. She has had Reglan in the past with no dystonic reaction but has never had cefepime and unsure
of any cephalosporin medications. I treated with an additional 25 mg of Benadryl and 100 mg of hydrocortisone. Will add cefepime to medication allergy list. Following additional medication administration patient did have relief of symptoms and no
evidence for anaphylaxis or angioedema. Awaiting CT scan, disposition pending
Patient Management
Escalation/DeEscalation of care consider admission/obs:
Patient feeling much better following medications. CT scan was noted for findings suggestive of acute cystitis. There is no evidence for hydronephrosis or renal calculi. Patient's lactic acid normalized following IV fluids. Given she is
afebrile, no leukocytosis and symptoms much improved I do think it is reasonable to trial outpatient oral antibiotics. I again treated the patient with Augmentin at discharge, has reportedly tolerated penicillins in the past without problem. This
was also given to her based off of the culture done as an outpatient.
ED Attending Note
-
Portions of this chart may have been created with voice recognition software.� Occasional wrong word or��sound alike� substitutions may have occurred due to the inherent limitations of voice recognition software.
Discharge Plan
Departure
Patient Disposition: Home (Routine Discharge)
Date of Disposition: 11/17/24
Time of Disposition: 15:02
Patient with high blood pressure during this ER visit?: No
Discharge Problem:
Cystitis
Instructions: Urinary Tract Infection, Adult (DC)
Prescriptions:
New
amoxicillin-pot clavulanate 875-125 mg tablet
1 tab PO BID 10 Days Qty: 20 0RF
No Action
Nuretin
1 tab PO DAILY PRN (Reason: headache)
1 tab PO DAILY
iron
1 tab PO BID
Rx Instructions:
unsure of dose
Referrals:
Ceci French CRNP [Family Provider, Family Practice]
Interventions
Interventions:
*Risk Screen - Suicide Last Done: 11/17/24 11:08
*General Assessment Last Done: 11/17/24 11:06
*Neglect/Abuse Screening Last Done: 11/17/24 11:08
*ED- Fall Risk Assessment Last Done: 11/17/24 11:06
*ED COVID-19 Vaccine History Last Done: 11/17/24 11:06
*Nursing Disposition Last Done: 11/17/24 15:58
ED-Female Genitourinary Assessment Last Done: 11/17/24 11:07
ED- Neurological Assessment Last Done: 11/17/24 11:07
Discharge Date and Time
Discharge Date/Time: 11/17/24 15:58
Print Language: MOHAWK
[2024-11-17] MEDS: MAXIPIME 2000 MG IV (11:43)
[2024-11-17] MEDS: NSS 1900 ML IV (11:43)
[2024-11-17] MEDS: BENADRYL 25 MG IV ×2 (11:43→12:00)
[2024-11-17] MEDS: TORADOL 30 MG IV (11:43)
[2024-11-17] MEDS: REGLAN 10 MG IV (11:43)
[2024-11-17 12:06] LABS: Urine Albumin 2+ (Neg - Trace); Urine Bilirubin Negative (Negative); Urine Character Clear (Clear); Urine Color Yellow; Urine Glucose Negative (Negative); Urine Ketone Negative (Negative); Urine Leukocyte Negative (Negative); Urine Nitrite Negative (Negative); Urine Occult Blood 1+ (Negative); Urine Specific Gravity 1.015 (<1.030); Urine Urobilinogen Negative (Neg - 1+)
[2024-11-17] MEDS: SOLU-CORTEF 100 MG IV (12:06)
[2024-11-17 12:09] VITALS: BP 98/67
[2024-11-17 12:25] LABS: Urine Mucus Moderate; Urine Squamous Cell >30 /LPF (Few)
[2024-11-17 12:26] LABS: Urine Bacteria Few (Negative); Urine Red Blood Cell 0-2 /HPF (0-2); Urine White Cell 0-2 /HPF (0-5)
[2024-11-17 15:36] LABS: Lactic Acid 1.3 mmol/L (0.7-2.0)
[2024-11-17 15:57] VITALS: BP 104/71
== END 2024-11-17 15:58 | disposition home or self-care (01) ==
LOC: EMR 10:14
PROVIDERS: Emergency Medicine; Physician Assistant Medical; EMERGENCY PHYSICIAN Emergency Medicine; FAMILY PHYSICIAN Nurse Practitioner
DX: R11.2 Nausea with vomiting, unspecified (principal); R10.9 Unspecified abdominal pain
CPT/HCPCS: 99284; 96374; 96375; 96376; 96361; 74176; 80053; 81003; 81015; 83605; 84703; 85025; 87040

== ENCOUNTER → 2024-12-17 08:21 | Outpatient (REF) | payer OTHER, SELFPAY | LOC: HWRAD 08:21 | PROVIDERS: ATTENDING PHYSICIAN Obstetrics & Gynecology; FAMILY PHYSICIAN Nurse Practitioner | DX: R10.2 Pelvic and perineal pain (principal); G89.29 Other chronic pain; N83.292 Other ovarian cyst, left side | CPT/HCPCS: 76830; 76856 ==

== ENCOUNTER → 2024-12-23 13:40 | Outpatient (REF) | payer OTHER, SELFPAY | LOC: MRI 3T 13:40 | PROVIDERS: ATTENDING PHYSICIAN Physical Medicine & Rehabilitation; FAMILY PHYSICIAN Nurse Practitioner | DX: M54.16 Radiculopathy, lumbar region (principal) | CPT/HCPCS: 72148 ==

== ENCOUNTER 2025-05-20 13:04 | Emergency (ER) | payer OTHER, SELFPAY ==
[2025-05-20 13:09] VITALS: BP 162/105
[2025-05-20 13:36] LABS: Hematocrit 39.5 % (37.0-47.0); Hemoglobin 13.4 g/dL (12.0-16.0); Mean Corp Hgb Conc. 33.9 g/dL (33.0-37.0); Mean Corpuscular Volume 89.2 fL (81.0-99.0); Nucleated Red Blood Cells % 0 %; Platelet Count 287 10^3/uL (130-400); Red Cell Dist. Width 11.8 % (11.5-14.5)
[2025-05-20 13:53] LABS: ALT (SGPT) 13 U/L (0-35); AST (SGOT) 20 U/L (14-36); Albumin 5.3 g/dl (3.5-5.0); Alkaline Phosphatase 52 U/L (38-126); Blood Urea Nitrogen 8 mg/dl (7-17); Calcium 9.6 mg/dl (8.4-10.2); Carbon Dioxide 28 mmol/L (22-30); Chloride 103 mmol/L (98-107); Glucose 97 mg/dl (70-99); Potassium 4.0 mmol/L (3.5-5.1); Sodium 139 mmol/L (135-145); Total Protein 8.8 g/dl (6.3-8.2); eGFR > 60.00
[2025-05-20 14:03] LABS: Urine Character Slightly Cloudy (Clear)
[2025-05-20 14:53] LABS: Urine Red Blood Cell 80-90 /HPF (0-2); Urine Squamous Cell >30 /LPF (Few); Urine White Cell 0-2 /HPF (0-5)
--- NOTE | 2025-05-20 15:27 | ED.GENMED ---
History of Present Illness
General
Chief Complaint: Urinary Symptoms
Source: patient
Exam Limitations: none
Time Seen by Provider: 05/20/25 15:19
Nursing documentation reviewed up to this point in time: agreed with
History of Present Illness
History of Present Illness:
Patient to the emergency department with complaint of hematuria. She states approximately 1 month ago she noticed that her urine was pink. She was evaluated by her PCP. No evidence of UTI. She was sent to follow-up with urology. She had an
appointment on Friday and was given a prescription for an outpatient CT urography. She scheduled this appointment for next Friday however since then her urine has become bright red. She was advised by urology to come to the emergency department
for evaluation. She denies any abdominal pain. She denies any burning with urination. She denies any atypical back pain. (chronic low back pain). She denies any fever or chills, nausea vomiting or diarrhea.
Past History
Past History
ED Past Medical History: Arrthythmia (SVT) and Other (Lyme disease, presumed endometriosis, Migraine, SVT, Stomach ulcers, )
ED Past Surgical History: Cardiac (cardiac ablation), and Tonsilectomy
Social History
Tobacco: Non-smoker
Alcohol: None
Drug: None
Personal:
Living: with family
Employment: Employed
Review of Systems
Review of Systems
Allergies reviewed?: Yes
All Other Systems: ROS reviewed and negative except as documented in HPI and ROS
Constitutional: Reports no symptoms
EENT: Reports no symptoms
Respiratory: Reports no symptoms
Cardiac: Reports no symptoms
ABD/GI: Reports no symptoms
: Reports bleeding (Hematuria x 1 month)
Musculoskeletal: Reports no symptoms
Skin: Reports no symptoms
Neurological: Reports no symptoms
Psychiatric: Reports no symptoms
Phy Exam
General Physical Exam
General Presentation: well appearing and no apparent distress
General age: appears stated age
General Skin: warm and dry
General Habitus: normal
General Mental: alert
Gastrointestinal Exam
Gastrointestinal Exam: normal bowel sounds, non tender, soft, no organomegaly and non distended
Musculoskeletal Exam
Musculoskeletal Exam: full ROM and neuro vasc intact
Skin Exam
Skin Exam: normal color, warm/dry and no rash
Psychiatric Exam
Psychiatric Exam: normal mood/affect
Course
Orders/Labs/Results
Orders:
Orders
05/20/25 13:[address] Urography Urgent
Comment:
Reason For Exam: hematuria, hx gonadal vein embolization
05/20/25 13:21
Complete Blood Count/With Diff Urgent
Comprehensive Metabolic Panel Urgent
HCG, Serum Qualitative Screen Urgent
Comment: ADD ON
05/20/25 13:25
Urinalysis Reflex To Culture Urgent
Date Specimen was Collected: 05/20/25
Time Specimen was Collected: 13:17
Urine Microscopic Reflex Cult Urgent
Urine Culture Urgent
PUJA Source: U
Specimen Description:
Date Specimen was Collected: 05/20/25
Time Specimen was Collected: 13:17
05/20/25 15:27
Add On- LAB Urgent
Tests Added?: hcg qualitative serum
Abnormal Lab Results
05/20/25 05/20/25
13:21 13:25
Total Protein 8.8 H g/dl
(6.3-8.2)
Albumin 5.3 H g/dl
(3.5-5.0)
Ur Occult Blood Reflex 4+ A
(Negative)
Urine RBC 80-90 A /HPF
(0-2)
Urine Bacteria (Reflex) Moderate A
(Negative)
Urine Albumin (Reflex) 1+ A
(Neg - Trace)
05/20/25 13:21
05/20/25 13:21
Vital Signs
Initial and Last Documented VS:
Initial Vital Signs
Temp Pulse Resp BP Pulse Ox
98.5 F 102 20 162/105 99
05/20/25 13:09 05/20/25 13:09 05/20/25 13:09 05/20/25 13:09 05/20/25 13:09
Last Documented Vital Signs
Temp Pulse Resp BP Pulse Ox
98.5 F 93 17 137/86 99
05/20/25 13:09 05/20/25 18:09 05/20/25 18:09 05/20/25 18:09 05/20/25 18:09
*Radiology
Radiology exam reviewed: radiology read reviewed
*Pulse Oximetry
SaO2: 99
Oxygen Mode of Delivery: Room air
Patient hypoxic: no
*Critical Care Note
Total Time (30-74mins, 75-104mins- exclusive of procedures): Not Applicable
Update Note
Update Note:
Patient to the emergency department for evaluation of hematuria. Symptoms started approximately 1 month ago. She was scheduled initially for an outpatient CT urography but states today her urine was bright red. She spoke with urologist who
advised that she come to the emergency department for imaging. Vital signs are stable and she remains afebrile. Labs reviewed. WBC 6.7, Hgb 13.4, HCT 39.5. CMP WNL. UA without concerns for UTI. CT urography was completed in the ED. no renal
ureteral or bladder calculus is identified there is no evidence of obstructive uropathy no apparent renal or bladder mass. Full visualization of the ureters is limited to metallic streak from artifact from coil embolization of the gonadal veins.
Case discussed with Dr. Garvey. Okay for discharge tonight since vital signs are stable, labs are stable. She will require a follow-up CT angiogram. As per , patient's neurologist will contact her on Friday for further evaluation and
testing. Discussed this plan with patient and she is agreeable. She will be discharged home tonight. She was given instructions on signs and symptoms to return to the emergency department and she is agreeable to this plan.
ED Attending Note
-
Portions of this chart may have been created with voice recognition software.� Occasional wrong word or��sound alike� substitutions may have occurred due to the inherent limitations of voice recognition software.
Discharge Plan
Departure
Patient Disposition: Home (Routine Discharge)
Date of Disposition: 05/20/25
Time of Disposition: 18:43
Patient with high blood pressure during this ER visit?: No
Condition: Good
Covid-19: Not Applicable
Discharge Problem:
Hematuria
Instructions: Blood in the Urine (Hematuria), Adult (DC)
Prescriptions:
No Action
Nuretin
1 tab PO DAILY PRN (Reason: headache)
1 tab PO DAILY
iron
1 tab PO BID
Rx Instructions:
unsure of dose
amoxicillin-pot clavulanate 875-125 mg tablet
1 tab PO BID 10 Days Qty: 20 0RF
Referrals:
Ceci French CRNP [Family Provider, Family Practice]
Katerine Quintero MD [Active, Urology]
Referral Note: Dr. Quintero will contact you on Friday.
Activity Restrictions/Additional Instructions:
Follow-up with Dr. Quintero. will contact you on Friday to schedule follow-up appointment. As we discussed today you will need an outpatient CT angiogram for further evaluation of your hematuria. This will be scheduled as per Dr. Quintero.
Return to the emergency department immediately for worsening bleeding, lightheadedness/dizziness, weakness, feeling faint, abdominal or pelvic pain, or for any further concerns.
Interventions
Interventions:
*General Assessment Last Done: 05/20/25 15:51
*Neglect/Abuse Screening Last Done: 05/20/25 13:09
*ED COVID-19 Vaccine History Last Done: 05/20/25 15:51
*ED Influenza Vaccine History Last Done: 05/20/25 15:51
*Risk Screen - Suicide (C-SSRS) Last Done: 05/20/25 13:09
*Nursing Disposition Last Done: 05/20/25 18:59
ED-Female Genitourinary Assessment Last Done: 05/20/25 15:51
Discharge Date and Time
Discharge Date/Time: 05/20/25 19:00
Print Language: TUVAL[place]
[2025-05-20 15:51] VITALS: BP 117/89
[2025-05-20 15:56] LABS: HCG, Serum Qualitative Screen Negative
[2025-05-20 18:09] VITALS: BP 137/86
== END 2025-05-20 19:00 | disposition home or self-care (01) ==
LOC: EMR 13:04
PROVIDERS: Emergency Medicine; EMERGENCY PHYSICIAN Emergency Medicine; FAMILY PHYSICIAN Nurse Practitioner
DX: R31.9 Hematuria, unspecified (principal); I47.10 Supraventricular tachycardia, unspecified; Z88.1 Allergy status to other antibiotic agents; Z88.5 Allergy status to narcotic agent; Z91.048 Other nonmedicinal substance allergy status
CPT/HCPCS: 99284; 74178; 80053; 81003; 81015; 84703; 85025; 87086; Q9967